=== PATIENT | female | born 1985 | race Asian ===

== ENCOUNTER → 2016-09-15 | Outpatient (CLI) | payer OTHER ==
--- NOTE | 2016-09-15 10:42 | REP ---
OB ULTRASOUND: Real-time sonographic evaluation of the gravid uterus is performed. There is a single living intrauterine gestation. Estimated gestational age 19 weeks 1 days, EDC 02/08/2017. Today's measurements indicate appropriate growth. BPD 43 mm = 18 weeks 6 days, 45th percentile HC 160 mm = 18 weeks 6 days, 43rd percentile AC 133 mm = 18 weeks 5 days, 43rd percentile FL 29 mm = 18 weeks 6 days, 44th percentile HC/AC ratio 1.21 within normal range. Estimated weight 259 grams, 36th percentile. Cervix closed and measures 4.1 cm in length. heart rate 150 beats per minute. SEEN/GROSSLY UNREMARKABLE Lateral ventricles yes Posterior fossa yes Upper lip yes Four-chamber heart yes LVOT yes RVOT yes Stomach yes Cord insertion yes Three vessel cord yes Kidneys yes Bladder yes Spine yes position: Transverse with head toward the maternal left side. Placenta: Posterior and grade 0 with no previa or abruption. Amniotic fluid: Within normal limits. Signed by Anders Zuniga MD 09/15/2016 04:14 P
== END ==
LOC: M SMT 08:48
PROVIDERS: ATTEND Advanced Practice Midwife
DX: Z34.82 Encounter for supervision of other normal pregnancy, second trimester (principal)

== ENCOUNTER → 2016-11-03 | Outpatient (CLI) | payer OTHER ==
[2016-11-03 17:16] LABS: MEAN CORPUSCULAR HEMOGLOBIN 25.7 pg (27.0-33.0); MEAN CORPUSCULAR HGB CONC 33.4 g/dl (32.0-36.5); MEAN CORPUSCULAR VOLUME 76.9 fl (80.0-96.0); RED CELL DISTRIBUTION WIDTH 13.7 % (11.5-14.5); WHITE BLOOD COUNT 3.9 K/mm3 (4.0-10.0)
== END ==
LOC: M LRY 13:25
PROVIDERS: ATTEND Obstetrics & Gynecology
DX: Z34.82 Encounter for supervision of other normal pregnancy, second trimester (principal)

== ENCOUNTER → 2017-01-14 | Outpatient (REF) | payer OTHER ==
[~2017-01-14] MED LIST: ACET50TA PO; PRENTAB9 PO
== END ==
LOC: M LAB REF 13:04
PROVIDERS: ATTEND Obstetrics & Gynecology
DX: Z34.83 Encounter for supervision of other normal pregnancy, third trimester (principal)

== ENCOUNTER 2017-01-20 01:59 | Inpatient (IN) | payer OTHER ==
[2017-01-20] VITALS (18 sets, daily range): BP systolic 109–134; BP diastolic 57–85
[~2017-01-20] VITALS: Ht 152.4 cm; Wt 54.0 kg
[2017-01-20] MEDS ORDERED: PRENTAB9 PO (02:32)
[2017-01-20] MEDS ORDERED: BUTORPHANOL 2 MG/ML INJ (J0595) IV ONE (03:15)
[2017-01-20] MEDS ORDERED: PROMETHAZINE INJ 25 MG/ML VIAL (J2550) IV ONE (03:15)
[2017-01-20 03:54] LABS: MEAN CORPUSCULAR HGB CONC 32.7 g/dl (32.0-36.5); MEAN CORPUSCULAR VOLUME 76.4 fl (80.0-96.0); RED CELL DISTRIBUTION WIDTH 13.8 % (11.5-14.5); WHITE BLOOD COUNT 5.7 K/mm3 (4.0-10.0)
[2017-01-20] MEDS ORDERED: OXYTOCIN 30 UNITS IN 0.9% NaCl 500ML IV BAG (J2590) As Ordered ONE (09:49)
[2017-01-20] MEDS ORDERED: OXYTOCIN DRIP 30 UNITS in APPROPRIATE DILUENT 1 EA IV SCH ×2 (10:00→14:44)
[2017-01-20] MEDS ORDERED: LR 1,000 ML IV SCH (10:00)
--- NOTE | 2017-01-20 11:22 | HPE ---
DATE OF ADMISSION: 01/20/2017 31-year-old, 7, para 3-1-2-4, estimated date of delivery 02/08/2017, presents at 37 weeks 2 days with reports of spontaneous rupture of membranes at 0030 hours, clear fluid with onset of contractions thereafter. Denies bleeding. Fetus is active. Last normal menstrual period 05/04/2016 for [facility]INT of 02/08/2017, sonogram at 7 weeks confirmed her date. Anatomy scan within normal limits. Appropriate care. OBSTETRICAL HISTORY: October 2008, induction of labor at 36 weeks due to heart abnormality, normal spontaneous vaginal , viable female 5 pounds 10 ounces. April 2009 miscarriage. February 2010 normal spontaneous vaginal at 39 weeks, viable male, 6 pounds 3 ounces. March 2012 normal spontaneous vaginal at 38 weeks, viable male, 6 pounds 15 ounces. October 2014 normal spontaneous vaginal 39 weeks, viable male 6 pounds 8 ounces. May 2015 miscarriage. ALLERGIES: She is allergic to IBUPROFEN: MEDICAL AND SURGICAL HISTORY: Noncontributory. FAMILY HISTORY: Diabetes and hypertension. SOCIAL HISTORY: . Father of the baby present and supportive. Denies tobacco, alcohol, drugs or abuse. OBJECTIVE: Prepregnancy weight 100 pounds, total weight gain 25 pounds. B+, antibody negative, rubella immune. VDRL, hepatitis B, hepatitis C, HIV, gonorrhea and Chlamydia all negative. Declined genetic screening. 1-hour glucose 114, and group B strep is negative. Vital signs are stable. She is in no apparent distress. Coping well with contractions, using modified hypnosis. Uterine contractions 5-7 minutes apart for 60 seconds. heart 145, moderate variability and accelerations. Clear fluid is draining per vagina. Sterile vaginal exam 2-3 cm, 80% effaced, -2, posterior ASSESSMENT: Multiparous at term, premature rupture of membranes (PROM), category 1 tracing. PLAN: Admit. The patient desires to labor ad abida at present. Consider Pitocin. Anticipate normal spontaneous vaginal .
[2017-01-20] MEDS ORDERED: DIBUCAINE 1% OINTMENT 30GM TOP PRN (14:45)
[2017-01-20] MEDS ORDERED: ANUSOL HC CREAM 30GM TOP PRN (14:45)
[2017-01-20] MEDS ORDERED: MOM 30ML SUSPENSION UDC PO PRN (14:45)
[2017-01-20] MEDS ORDERED: MEASLES,MUMPS,RUBELLA VACCINE INJ (MMR-II) (90707) SC SCH (14:45)
[2017-01-20] MEDS ORDERED: METHYLERGONOVINE MALEATE 0.2 MG TAB PO PRN (14:45)
[2017-01-20] MEDS ORDERED: RHOGAM 300 MCG (1500 IU) INJ (J2790) IM SCH (14:45)
[2017-01-20] MEDS ORDERED: DOCUSATE SODIUM 100 MG CAP PO PRN (14:45)
[2017-01-20] MEDS: ACETAMINOPHEN 500 MG TAB PO PRN ×2 (14:59→21:26)
--- NOTE | 2017-01-20 15:11 | DN ---
DATE OF DELIVERY: 01/20/2017 TIME OF : 1410 GENDER: Male. SCORES: 8 and 9. WEIGHT: 5 pounds, 15 ounces or 2698 grams. ANESTHESIA: None. LACERATIONS: None. COUNTS: 5 laparotomy sponges accounted for prior to and after delivery. DELIVERY NOTE: On 01/20/2017 at 1410, Mrs. Hector a 31-year-old 7, now para 5, had a spontaneous vaginal delivery of a live born male . scores were 8 and 9. Weight was 5 pounds, 15 ounces, 2698 grams. Head was delivered right occiput anterior (HAILEE) over intact peritoneum. There was a nuchal cord which was manually reduced followed by delivery of left anterior shoulder, right post shoulder and corpus. was handed to mother with good cry. Cord was clamped times two and was cut by the father of the baby under my directed. Cord blood was then obtained. Placenta was drained and delivered virtually intact. A previous bag of 500 mL of normal saline with 30 units of pitocin was then bolused along with uterine massage. The uterus was firm. On inspection, cervix, vagina and perineum was grossly intact and hemostatic. Mother and baby can recover in stable condition. Edited: elin 01/23/2017 1611 [email or web address]
[2017-01-21 05:33] VITALS: BP 117/72
[2017-01-21] MEDS: ACETAMINOPHEN 500 MG TAB PO PRN ×2 (05:40→12:54)
[2017-01-21] MEDS: PRENATAL VITAMINS CHEWABLE TABLET PO SCH (08:44)
[2017-01-21 18:03] VITALS: BP 134/74
[2017-01-22] MEDS: ACETAMINOPHEN 500 MG TAB PO PRN (05:05)
[2017-01-22 05:54] VITALS: BP 136/74
[2017-01-22] MEDS: PRENATAL VITAMINS CHEWABLE TABLET PO SCH (07:57)
[2017-01-22] MEDS ORDERED: ACET50TA PO (09:11)
== END 2017-01-22 10:10 | disposition home or self-care (01) | DRG 775 ==
LOC: M LDO 01:59 → M LDI 03:09 → M OBS 16:25
PROVIDERS: ADMIT Advanced Practice Midwife; ATTEND Advanced Practice Midwife
PROC: 10E0XZZ Delivery of Products of Conception, External Approach (ICD-10-PCS; principal; 2017-01-20)
DX: O69.82X0 Labor and delivery complicated by other cord entanglement, without compression, not applicable or unspecified (principal); Z37.0 Single live birth; Z3A.37 37 weeks gestation of pregnancy; Z88.6 Allergy status to analgesic agent; Z83.3 Family history of diabetes mellitus; Z82.49 Family history of ischemic heart disease and other diseases of the circulatory system

== ENCOUNTER 2017-07-17 02:18 | Day surgery (SDC) | payer OTHER ==
[2017-07-17 04:59] LABS: BASO % 0.1 % (0.0-1.0); EOS % 0.1 % (0.0-3.0); HEMATOCRIT 38.6 % (36.0-47.0); IMMATURE GRANULOCYTE % 0.2 % (0-0); LYMPH # 1.2 10^3/uL (1.5-4.5); LYMPH % 11.7 % (24.0-44.0); MEAN CORPUSCULAR HEMOGLOBIN 23.7 pg (27.0-33.0); MEAN CORPUSCULAR HGB CONC 31.1 g/dl (32.0-36.5); MEAN CORPUSCULAR VOLUME 76.1 fl (80.0-96.0); MONO # 0.8 10^3/uL (0.0-0.8); MONO % 8.2 % (0.0-5.0); NEUTROPHILS # 8.1 10^3/uL (1.8-7.7); NEUTROPHILS % 79.7 % (36.0-66.0); PLATELET COUNT, AUTOMATED 211 10^3/uL (150-450); RED BLOOD COUNT 5.07 10^6/uL (4.00-5.40); RED CELL DISTRIBUTION WIDTH 12.4 % (11.5-14.5); WHITE BLOOD COUNT 10.2 10^3/uL (4.0-10.0)
[2017-07-17 05:03] LABS: APPEARANCE, URINE CLEAR (CLEAR); BACTERIA, URINE AUTO NEGATIVE (NEGATIVE); BILIRUBIN, URINE AUTO NEGATIVE (NEGATIVE); BLOOD, URINE BLOOD NEGATIVE (NEGATIVE); COLOR, URINE YELLOW (YELLOW); GLUCOSE, URINE (UA) AUTO NEGATIVE (NEGATIVE); KETONE, URINE AUTO NEGATIVE (NEGATIVE); LEUKOCYTE ESTERASE, URINE AUTO NEGATIVE (NEGATIVE); MUCUS, URINE SMALL (NEGATIVE); NITRITE, URINE AUTO NEGATIVE (NEGATIVE); PROTEIN, URINE AUTO NEGATIVE (NEGATIVE); RBC, URINE AUTO 3 /HPF (0-3); SPECIFIC GRAVITY URINE AUTO 1.027 (1.002-1.035); SQUAMOUS EPITHELIAL CELL UR AU 0 /HPF (0-6); UROBILINOGEN, URINE AUTO 0.2 mg/dL (0.0-2.0); WBC, URINE AUTO 2 /HPF (0-3)
[2017-07-17] MEDS ORDERED: MORPHINE 4 MG/ML 1ML SYRINGE As Ordered ×2 (05:09→05:17)
[2017-07-17] MEDS ORDERED: ONDANSETRON 4MG/2ML VIAL (J2405) As Ordered ×2 (05:09→16:55)
[2017-07-17 05:14] LABS: CONTROL LINE HCG INT CTR LINE PRESENT; HCG, SERUM QUALITATIVE NEGATIVE (NEGATIVE)
[2017-07-17 05:23] LABS: ALBUMIN 4.1 GM/DL (3.2-5.2); ALBUMIN/GLOBULIN RATIO 0.79 (1.00-1.93); ALKALINE PHOSPHATASE 95 U/L (45-117); ALT/SGPT 25 U/L (12-78); AMYLASE 100 U/L (25-115); ANION GAP 8 MEQ/L (8-16); AST/SGOT 17 U/L (7-37); BILIRUBIN,DIRECT 0.1 MG/DL (0.0-0.2); BILIRUBIN,TOTAL 0.5 MG/DL (0.2-1.0); BLOOD UREA NITROGEN 21 MG/DL (7-18); CALCIUM LEVEL 8.8 MG/DL (8.5-10.1); CARBON DIOXIDE LEVEL 25 MEQ/L (21-32); CHLORIDE LEVEL 105 MEQ/L (98-107); CREATININE FOR GFR 0.63 MG/DL (0.55-1.02); GLOMERULAR FILTRATION RATE > 60.0 (>60); GLUCOSE, FASTING 126 MG/DL (70-105); LIPASE 151 U/L (73-393); POTASSIUM SERUM 3.8 MEQ/L (3.5-5.1); SODIUM LEVEL 138 MEQ/L (136-145); TOTAL PROTEIN 9.3 GM/DL (6.4-8.2)
[2017-07-17] MEDS: NS 1,000 ML IV ×2 (05:26→08:46)
[2017-07-17] MEDS: ACETAMINOPHEN 325 MG TAB PO (05:26)
[2017-07-17] MEDS: GASTROGRAFIN SOLUTION 30ML PO (05:35)
[2017-07-17] MEDS: GASTROGRAFIN SOLUTION 30ML (Q9963) PO (05:55)
[2017-07-17] MEDS ORDERED: ISOVUE-370 76% 100ML VIAL (Q9967) As Ordered (06:48)
[2017-07-17] MEDS: PIPERACILLIN/TAZOBACTAM SOD 3.375 GM in APPROPRIATE DILUENT 1 EA IV (08:46)
[2017-07-17 09:45] LABS: CHLAMYDIA DNA AMPLIFICATION NEGATIVE (NEGATIVE); GC DNA AMPLIFICATION NEGATIVE (NEGATIVE)
[2017-07-17] MEDS ORDERED: ONDANSETRON 4MG/2ML VIAL (J2405) IV ×2 (11:00→17:45)
[2017-07-17] MEDS ORDERED: MORPHINE 4 MG/ML 1ML SYRINGE IV (11:00)
[2017-07-17] MEDS: LR 1,000 ML IV ×4 (12:35→21:18)
[2017-07-17] MEDS: AMPICILLIN SOD/SULBACTAM SOD 3 GM in D5W MINI-BAG PLUS 100 ML IV ×3 (13:47→22:12)
[2017-07-17] MEDS ORDERED: ROCURONIUM BROMIDE 50 MG/5 ML VIAL As Ordered (16:32)
[2017-07-17] MEDS ORDERED: MIDAZOLAM INJ 2 MG/2 ML VIAL (J2250) As Ordered (16:32)
[2017-07-17] MEDS ORDERED: LIDOCAINE 2% INJ 100 MG/5 ML SDV (FOR ANES.) As Ordered (16:32)
[2017-07-17] MEDS ORDERED: PROPOFOL 200 MG/20 ML VIAL As Ordered (16:32)
[2017-07-17] MEDS ORDERED: fentaNYL 250 MCG/5 ML INJECTION (J3010) As Ordered (16:32)
[2017-07-17] MEDS ORDERED: dexameTHASONE 4 MG/ML 1ML VIAL (J1100) As Ordered (16:35)
[2017-07-17] MEDS ORDERED: ESMOLOL INJ 100MG/10ML VIAL As Ordered (16:39)
[2017-07-17] MEDS: LIDOCAINE 1% SDV INJ 30 ML VIAL As Ordered (16:53)
[2017-07-17] MEDS: BUPIVACAINE HCL 0.25% 30 ML VIAL As Ordered (16:53)
[2017-07-17] MEDS ORDERED: PHENYLephrine HCL 500 MCG/5 ML (100MCG/ML) SYRINGE (J2370) As Ordered (16:59)
[2017-07-17] MEDS ORDERED: SUGAMMADEX SODIUM 500 MG/5 ML VIAL (BRIDION) As Ordered (17:06)
[2017-07-17] MEDS ORDERED: fentaNYL 100 MCG/2 ML INJECTION (J3010) IV (17:45)
[2017-07-17] MEDS ORDERED: PERCOCET 5MG/325MG TAB PO (17:45)
[2017-07-17] MEDS: MORPHINE 10 MG/ML 1ML VIAL IV ×3 (17:55→18:05)
[2017-07-17] MEDS ORDERED: MORPHINE 10 MG/ML 1ML VIAL As Ordered (17:55)
[2017-07-17] MEDS: PERCOCET 5MG/325MG TAB PO (22:12)
[2017-07-18] MEDS: AMPICILLIN SOD/SULBACTAM SOD 3 GM in D5W MINI-BAG PLUS 100 ML IV ×2 (05:49→10:37)
[2017-07-18] MEDS: PERCOCET 5MG/325MG TAB PO ×2 (05:56→10:38)
[2017-07-18 06:40] LABS: HEMOGLOBIN 10.5 g/dl (12.0-16.0); MEAN CORPUSCULAR HEMOGLOBIN 23.4 pg (27.0-33.0); MEAN CORPUSCULAR HGB CONC 30.9 g/dl (32.0-36.5); MEAN CORPUSCULAR VOLUME 75.9 fl (80.0-96.0); PLATELET COUNT, AUTOMATED 195 10^3/uL (150-450); RED BLOOD COUNT 4.48 10^6/uL (4.00-5.40); RED CELL DISTRIBUTION WIDTH 12.4 % (11.5-14.5)
[2017-07-18] MEDS: LR 1,000 ML IV (06:53)
[2017-07-18 07:03] LABS: ANION GAP 6 MEQ/L (8-16); BLOOD UREA NITROGEN 13 MG/DL (7-18); CALCIUM LEVEL 8.2 MG/DL (8.5-10.1); CARBON DIOXIDE LEVEL 27 MEQ/L (21-32); CHLORIDE LEVEL 107 MEQ/L (98-107); CREATININE FOR GFR 0.56 MG/DL (0.55-1.02); GLOMERULAR FILTRATION RATE > 60.0 (>60); GLUCOSE, FASTING 126 MG/DL (70-105); POTASSIUM SERUM 3.8 MEQ/L (3.5-5.1); SODIUM LEVEL 140 MEQ/L (136-145)
[2017-07-18] MEDS: AUGMENTIN 875 MG TAB PO (20:31)
[2017-07-18] MEDS: ACETAMINOPHEN TAB 650MG DOSE (2X325MG) PO (21:59)
[2017-07-18] MEDS: POLYVINYL ALCOHOL OPHTH SOLN 15 ML(LIQUITEARS) OU (22:02)
[2017-07-19] MEDS: ACETAMINOPHEN TAB 650MG DOSE (2X325MG) PO (07:35)
[2017-07-19] MEDS: AUGMENTIN 875 MG TAB PO (07:35)
== END 2017-07-19 10:15 | disposition home or self-care (01) ==
LOC: M SDC 07-19 10:15 → M ED 02:18 → M SDC 10:00 → M MS5PR 13:15
DX: K35.80 Unspecified acute appendicitis (principal); F41.9 Anxiety disorder, unspecified; Z79.899 Other long term (current) drug therapy
CPT/HCPCS: 44970

== ENCOUNTER 2017-07-27 14:23 | Emergency (ER) | payer OTHER | END 2017-07-27 16:51 | disposition left against medical advice (07) | LOC: M ED 14:23 | DX: Z53.29 Procedure and treatment not carried out because of patient's decision for other reasons (principal) ==

== ENCOUNTER → 2017-09-07 | Outpatient (CLI) | payer OTHER ==
[2017-09-07 19:01] LABS: TOTAL 25(OH) VITAMIN D 15.5 NG/ML (30.0-100.0)
== END ==
LOC: M SMT 14:07
DX: R53.83 Other fatigue (principal)